=== PATIENT | male | born 1990 | race American Indian/Alaskan Native ===

== ENCOUNTER 2017-05-03 13:29 | Emergency (ER) | payer SELFPAY ==
[2017-05-03] MEDS ORDERED: TORADOL IV ONE (17:48)
[2017-05-03] MEDS ORDERED: NACL 0.9% 1000 ML 1,000 ML IV ONE ×2 (17:48→19:05)
[2017-05-03] MEDS ORDERED: ZOFRAN IV ONE (17:48)
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
[2017-05-03] MEDS ORDERED: ZOFRAN ONE (17:49)
[2017-05-03] MEDS ORDERED: TORADOL ONE (17:49)
[2017-05-03] MEDS ORDERED: NACL 0.9% 1000 ML 1,000 ML ONE (17:49)
[2017-05-03] MEDS ORDERED: TYLENOL ONE (17:50)
--- NOTE | 2017-05-03 18:25 | XRay Report ---
FINAL REPORT EXAM: XR CHEST ROUTINE 2V HISTORY: fever, cough TECHNIQUE: Two view chest PA and lateral PRIORS: None. FINDINGS: Cardiac and mediastinal contours are unremarkable. No focal pulmonary infiltrate is identified. No pleural fluid collection seen. Pulmonary vasculature is unremarkable. IMPRESSION: Negative two-view chest
[2017-05-03 18:29] LABS: Basophils % (Auto) 0.3 % (0.0-1.8); Eosinophils % (Auto) 0.2 % (0.0-4.3); Hematocrit 44.6 % (35.5-45.6); Hemoglobin 14.3 gm/dl (11.8-15.2); Lymphocytes # (Auto) 0.2 K/mm3 (1.2-5.4); Mean Corpuscular HGB Conc 32 % (32-34); Mean Corpuscular Volume 70 fl (84-94); Monocytes % (Auto) 12.4 % (0.0-7.3); Platelet Count 194 K/mm3 (140-440); Red Blood Count 6.36 M/mm3 (3.65-5.03); Red Cell Distribution Width 16.4 % (13.2-15.2)
[2017-05-03 18:31] LABS: Mean Corpuscular Hemoglobin 23 pg (28-32)
[2017-05-03] MEDS ORDERED: TYLENOL PO ONE (18:56)
[2017-05-03 19:44] LABS: BUN/Creatinine Ratio 10; Blood Urea Nitrogen 8 mg/dL (9-20); Calcium 8.7 mg/dL (8.4-10.2); Hemolysis Index 4
[2017-05-03] MEDS ORDERED: SUBLIMAZE IV ONE (20:14)
[2017-05-03 20:29] LABS: Amorphous Crystals,Urine 3+; Bilirubin,Urine NEG (Negative); Blood,Urine NEG (Negative); Color,Urine Yellow (Yellow); Nitrite,Urine NEG (Negative); Urobilinogen,Urine < 2.0 mg/dL (<2.0)
[2017-05-03 20:30] LABS: RBC,Urine < 1.0 /HPF (0.0-6.0); WBC,Urine < 1.0 /HPF (0.0-6.0)
[2017-05-03 21:26] VITALS: BP 103/59
== END 2017-05-03 21:41 | disposition home or self-care (01) ==
LOC: ED 13:29
DX: J09.X1 Influenza due to identified novel influenza A virus with pneumonia (principal); M54.5 Low back pain
CPT/HCPCS: 36415; 71046; 80048; 81001; 82140; 85025; 87040; 87086; 87116; 87400; 87430; 96361; 96374; 96375; 99284; J1885; J2405; J3010; J7030